=== PATIENT | female | born 1980 | race African-American/Black ===

== ENCOUNTER 2021-01-14 10:13 | Emergency (ER) | payer MEDICAID ==
[~2021-01-14] VITALS: Ht 162.6 cm; Wt 68.0 kg
[2021-01-14 10:29] VITALS: BP_SYST 124
[2021-01-14 10:49] LABS: BILIRUBIN,URINE NEGATIVE (NEGATIVE); BLOOD, URINE NEGATIVE (NEGATIVE); CLARITY/URINE CLEAR (CLEAR); COLOR,URINE YELLOW (YELLOW); GLUCOSE,URINE NEGATIVE (NEGATIVE); KETONES,URINE TRACE (NEGATIVE); LEUKOCYTE ESTERASE ,URINE TRACE (NEGATIVE); NITRITE, URINE NEGATIVE (NEGATIVE); PH,URINE 6.5 (5.0-8.0); PROTEIN URINE NEGATIVE (NEGATIVE); UROBILINOGEN,URINE 0.2 (0.2-1.0)
[2021-01-14 10:55] LABS: BASOPHILS % (AUTO) 0.4 % (0.0-2.0); EOSINOPHILS % (AUTO) 0.3 % (0.0-4.0); HEMATOCRIT 34.9 % (36-48); HEMOGLOBIN 11.4 g/dL (12.0-16.0); LYMPHOCYTES # (AUTO) 0.8 K/uL (1.0-5.5); MEAN CORPUSCULAR HEMOGLOBIN 30 pg (27-31); MEAN CORPUSCULAR HGB CONC 33 % (32-36); MEAN CORPUSCULAR VOLUME 91 fL (79.0-98.0); MONOCYTES # (AUTO) 0.4 K/uL (0.0-1.0); MONOCYTES % (AUTO) 8.4 % (1.7-9.3); NEUTROPHILS # (AUTO) 3.2 K/uL (1.8-7.7); NEUTROPHILS % (AUTO) 71.9 % (40.0-70.0); PLATELET COUNT (AUTO) 170 K/uL (130-430); RED BLOOD CELL COUNT(AUTO) 3.81 MIL/uL (4.2-6.2); RED CELL DISTRIBUTION WIDTH 13.1 % (9.0-15.0); WHITE BLOOD COUNT (AUTO) 4.4 K/uL (4.8-10.8)
[2021-01-14 11:00] LABS: BACTERIA,URINE FEW /HPF (None Seen); CALCIUM 8.6 mg/dL (8.4-11.0); CREATININE 0.74 mg/dL (0.55-1.30); MUCUS,URINE 1+ /LPF (None Seen); RBC,URINE 0-3 /HPF (0-3)
[2021-01-14] MEDS ORDERED: POTASSIUM CHLORIDE 20 MEQ/PKT PACKET PO ONE (11:15)
[2021-01-14 12:17] VITALS: BP_SYST 116
== END 2021-01-14 12:17 | disposition home or self-care (01) ==
LOC: SED 10:13
DX: O20.0 Threatened abortion (principal); O99.011 Anemia complicating pregnancy, first trimester; E87.6 Hypokalemia; Z3A.01 Less than 8 weeks gestation of pregnancy
CPT/HCPCS: 36415; 76801; 76817; 80048; 81000; 81025; 84702; 85025; 86901; 87086; 99284

== ENCOUNTER 2022-04-13 17:38 | Emergency (ER) | payer MEDICAID ==
[~2022-04-13] VITALS: Ht 162.6 cm; Wt 62.6 kg
[2022-04-13 18:13] VITALS: BP_SYST 131
--- NOTE | 2022-04-13 18:18 | NUR ---
BIBS WITH C/C OF WAKING UP THIS AM WITH ABDOMINAL PAIN. DENIES ANY N/V/SOB, NO DYSURIA REPORTED. NONTENDER TO PALPATION. NORMAL BOWELS, DENIES ANY DIARRHEA. REPORTS PAIN 4/10, VERY PLEASANT AND STATES SHE WANTS TO GET CHECKED OUT. REPORTS HER BOYFRIEND MAY HAVE GIVEN HER A STD, SHE STATES HE NOW HAS A PENILE DISCHARGE AND HAS BEEN UNFAITHFUL TO HER. SHE STATES SHE WANTS TO GET CHECKED FOR ANY STD.
[2022-04-13] MEDS ORDERED: cefTRIAXone 1 GM VIAL IM ONE (18:30)
--- NOTE | 2022-04-13 19:42 | NUR ---
Patient to ER bed roque 1 to gown for evaluation. Side rails up. Report given to Marina SANDHU(reg).
--- NOTE | 2022-04-13 19:43 | NUR ---
ASSUMED CARE OF THIS PT, HERE FOR POSS. STD, AAOX4, NO SOB NOTED AND NOT IN ANY DISTRESS. PENDING MD AUGUSTINE.
--- NOTE | 2022-04-13 19:45 | NUR ---
ER Dr.Dela March at bedside examining patient.
[2022-04-13] MEDS ORDERED: DOXY100T2 PO (19:52)
[2022-04-13] MEDS ORDERED: IBUP-1969 PO (19:52)
[2022-04-13 20:06] VITALS: BP_SYST 121
--- NOTE | 2022-04-13 20:08 | NUR ---
DC PT HOME AAOX4, NO SOB NOTED AND NOT IN ANY DISTRESS. DC INSTRUCTION AND PRESCRIPTION WERE GIVEN TO PT ALSO INSTRUCTED TO F/U WITH HER PCP. PT VERBALIZED UNDERSTANDING. NO MEDICATION REACTION NOTED UPON DC.
== END 2022-04-13 20:09 | disposition home or self-care (01) ==
LOC: SED 17:38
DX: Z11.3 Encounter for screening for infections with a predominantly sexual mode of transmission (principal); R10.30 Lower abdominal pain, unspecified; Z79.899 Other long term (current) drug therapy
CPT/HCPCS: 99283; 36415; 96372; 87491; J0696